=== PATIENT | female | born 1950 | race Caucasian/White ===

== ENCOUNTER 2025-01-03 15:47 | Emergency (ER) | payer MEDICARE ==
[~2025-01-03] VITALS: Ht 152.4 cm; Wt 68.2 kg
[2025-01-03] MEDS: HYDROmorphone HCL 2 MG/ML SYRINGE IVP ONE (16:42)
[2025-01-03 16:47] VITALS: TEMP 97.9
[2025-01-03] MEDS: ONDANSETRON HCL 4 MG/2 ML VIAL IVP ONE (16:53)
[2025-01-03] MEDS ORDERED: HYDR-4062 PO (19:05)
[2025-01-03 19:30] VITALS: BP 145/95; PULSE 92; RESP 17; O2SAT 98
== END 2025-01-03 19:47 | disposition home or self-care (01) ==
LOC: EMS 15:50
DX: S43.014A Anterior dislocation of right humerus, initial encounter (principal); I10 Essential (primary) hypertension; W01.0XXA Fall on same level from slipping, tripping and stumbling without subsequent striking against object, initial encounter; Y93.89 Activity, other specified; Y92.89 Other specified places as the place of occurrence of the external cause; Y99.8 Other external cause status
CPT/HCPCS: 23650; 96374; 96375; 99284; J1171; J2405